=== PATIENT | female | born 1975 | race Caucasian/White ===

== ENCOUNTER 2016-09-28 02:34 | Inpatient (IN) | payer MEDICAID ==
[~2016-09-28] VITALS: Ht 154.9 cm; Wt 66.3 kg
[~2016-09-28 02:34] MED LIST: ALBUTEROL; LEVAQUIN750 MG PO; PROMETHAZINE12.5 M4 PO
[2016-09-28] MEDS ORDERED: PREDNISONE10 M1 PO (05:34)
[2016-09-28 05:40] LABS: BASOPHIL % 0.8 % (0-2); PLATELET COUNT 267 x10^3mcL (130-400); RED CELL DISTRIBUTION WIDTH 14.3 % (11.5-14.5)
[2016-09-28 05:46] LABS: CALCIUM 8.4 mg/dL (8.5-10.1); CARBON DIOXIDE 29.9 mmol/L (21-32); CHLORIDE SERUM 103 mmol/L (98-107); CREATININE SERUM 0.6 mg/dL (0.6-1.0); GFR1 > 60 mL/min; GLUCOSE SERUM 99 mg/dL (74-106); SODIUM SERUM 139 mmol/L (136-145)
[2016-09-28 05:51] LABS: ALBUMIN 3.6 g/dL (3.4-5.0); ALKALINE PHOSPHATASE 56 U/L (46-116); ALT/SGPT 19 U/L (14-59); AST/SGOT 11 U/L (15-37); BILIRUBIN TOTAL 0.3 mg/dL (0.20-1.00); TOTAL PROTEIN, SERUM 6.9 g/dL (6.4-8.2)
[2016-09-28 06:09] VITALS: BP 122/77
[2016-09-28 06:28] LABS: T3 TOTAL 1.02 ng/mL
[2016-09-28 06:34] LABS: MAGNESIUM 1.9 mg/dL (1.8-2.4); PHOSPHOROUS 3.3 mg/dL (2.5-4.9)
[2016-09-28 06:42] LABS: CHOLESTEROL/HDL RATIO 2.6
[2016-09-28 06:43] LABS: FREE T4 1.03 ng/dL (0.76-1.46); FREE THYROXINE INDEX 2.3 ug/dL (1.4-4.5); T4(THYROXINE) 6.6 ug/dL (4.7-13.3)
[2016-09-28 07:45] VITALS: BP 117/75
[2016-09-28 14:00] VITALS: BP 96/47
[2016-09-28 17:18] LABS: microscopic required? YES; urine erythrocyte NEGATIVE (NEGATIVE)
[2016-09-28 17:32] LABS: AMPHETAMINE QUAL UR NONE DETECTED (NEG <=1000)
[2016-09-28 18:17] VITALS: BP 116/56
[2016-09-28 21:57] VITALS: BP 125/61
[2016-09-29 05:43] VITALS: BP 92/55
[2016-09-29 06:41] LABS: BASOPHIL % 0.1 % (0-2); PLATELET COUNT 272 x10^3mcL (130-400)
[2016-09-29 06:54] LABS: CALCIUM 8.3 mg/dL (8.5-10.1); CARBON DIOXIDE 27.5 mmol/L (21-32); CHLORIDE SERUM 104 mmol/L (98-107); CREATININE SERUM 0.4 mg/dL (0.6-1.0); GFR1 > 60 mL/min; GLUCOSE SERUM 107 mg/dL (74-106); MAGNESIUM 2.1 mg/dL (1.8-2.4); PHOSPHOROUS 3.6 mg/dL (2.5-4.9); POTASSIUM SERUM 3.9 mmol/L (3.5-5.1); SODIUM SERUM 140 mmol/L (136-145)
[2016-09-29 06:56] LABS: RED CELL DISTRIBUTION WIDTH 14.6 % (11.5-14.5)
[2016-09-29 09:15] VITALS: BP 98/44
[2016-09-29 12:30] VITALS: BP 98/51
[2016-09-29 17:02] VITALS: BP 101/54
[2016-09-29 21:51] VITALS: BP 96/51
[2016-09-30 05:53] VITALS: BP 98/53
[2016-09-30 06:31] LABS: BASOPHIL % 0.1 % (0-2); PLATELET COUNT 246 x10^3mcL (130-400)
[2016-09-30 06:41] LABS: CALCIUM 8.2 mg/dL (8.5-10.1); CARBON DIOXIDE 27.2 mmol/L (21-32); CHLORIDE SERUM 105 mmol/L (98-107); CREATININE SERUM 0.5 mg/dL (0.6-1.0); GFR1 > 60 mL/min; GLUCOSE SERUM 130 mg/dL (74-106); POTASSIUM SERUM 3.7 mmol/L (3.5-5.1); SODIUM SERUM 140 mmol/L (136-145)
[2016-09-30 07:32] LABS: RED CELL DISTRIBUTION WIDTH 14.6 % (11.5-14.5)
[2016-09-30 09:30] VITALS: BP 93/54
[2016-09-30] MEDS ORDERED: SINGULAIR10 MG PO (10:59)
[2016-09-30] MEDS ORDERED: MEDDP PO (11:01)
[2016-09-30] MEDS ORDERED: LAC PO (11:02)
[2016-09-30] MEDS ORDERED: LEVAQUIN750 MG PO (11:02)
[2016-09-30 11:38] VITALS: BP 106/58; BP 93/54
[2016-09-30 13:00] VITALS: BP 106/58
== END 2016-09-30 13:29 | disposition home or self-care (01) | DRG 141 ==
LOC: ED 02:34 → DU 05:31 → MU 05:31 → DU 07:46 → MU 17:20
PROVIDERS: Emergency Medicine; ADMIT Family Medicine
DX: J45.901 Unspecified asthma with (acute) exacerbation (principal); N17.0 Acute kidney failure with tubular necrosis; N39.0 Urinary tract infection, site not specified
CPT/HCPCS: 36600; 80307; 83880; 84439; 94150; J1956; J2920; J2930; J3475; J7030; J7512; J7613; J7620; J7626; J7644; Q0092; Q9967

== ENCOUNTER 2016-11-23 23:56 | Emergency (ER) | payer MEDICAID ==
[~2016-11-23 23:56] MED LIST changes: +LAC PO; +MEDDP PO; +PREDNISONE10 M1 PO; +SINGULAIR10 MG PO
[2016-11-24 00:32] LABS: BASOPHIL % 0.8 % (0-2); PLATELET COUNT 269 x10^3mcL (130-400); RED CELL DISTRIBUTION WIDTH 13.9 % (11.5-14.5)
[2016-11-24 00:45] LABS: CALCIUM 8.5 mg/dL (8.5-10.1); CHLORIDE SERUM 102 mmol/L (98-107); CREATININE SERUM 0.6 mg/dL (0.6-1.0); GFR1 > 60 mL/min; GLUCOSE SERUM 90 mg/dL (74-106); POTASSIUM SERUM 3.7 mmol/L (3.5-5.1); SODIUM SERUM 136 mmol/L (136-145)
[2016-11-24 00:50] LABS: ALBUMIN 3.8 g/dL (3.4-5.0); ALKALINE PHOSPHATASE 72 U/L (46-116); ALT/SGPT 17 U/L (14-59); AST/SGOT 12 U/L (15-37); BILIRUBIN TOTAL 0.3 mg/dL (0.20-1.00); CHOLESTEROL 155 mg/dL (<200); HDL CHOLESTEROL 65 mg/dL (40-60); TOTAL PROTEIN, SERUM 7.3 g/dL (6.4-8.2)
[2016-11-24 01:57] VITALS: BP 110/73
== END 2016-11-24 01:57 | disposition home or self-care (01) ==
LOC: ED 23:56
PROVIDERS: Emergency Medicine
DX: J45.901 Unspecified asthma with (acute) exacerbation (principal); Z88.5 Allergy status to narcotic agent
CPT/HCPCS: 83880; J2930; J7030; J7613; Q0092

== ENCOUNTER 2017-01-02 22:51 | Inpatient (IN) | payer MEDICAID ==
[~2017-01-02] VITALS: Ht 154.9 cm; Wt 66.5 kg
[2017-01-03] VITALS (7 sets, daily range): BP systolic 92–112; BP diastolic 53–75
[2017-01-03] MEDS ORDERED: ALBUTEROL1.25 MG/3 NEB (01:43)
[2017-01-03] MEDS ORDERED: VENTOLIN H0.09 MG/A1 INH (01:43)
[2017-01-03 02:20] LABS: PHOSPHOROUS 2.1 mg/dL (2.5-4.9)
[2017-01-03 02:27] LABS: BASOPHIL % 0.5 % (0-2); PLATELET COUNT 265 x10^3mcL (130-400); RED CELL DISTRIBUTION WIDTH 13.6 % (11.5-14.5)
[2017-01-03 02:28] LABS: T3 TOTAL 1.31 ng/mL
[2017-01-03 02:33] LABS: FREE T4 1.1 ng/dL (0.76-1.46); FREE THYROXINE INDEX 2.8 ug/dL (1.4-4.5)
[2017-01-03 02:38] LABS: ALBUMIN 3.5 g/dL (3.4-5.0); ALKALINE PHOSPHATASE 81 U/L (46-116); ALT/SGPT 11 U/L (14-59); AST/SGOT 13 U/L (15-37); BILIRUBIN TOTAL 0.11 mg/dL (0.20-1.00); CALCIUM 8.1 mg/dL (8.5-10.1); CARBON DIOXIDE 26.8 mmol/L (21-32); CHLORIDE SERUM 109 mmol/L (98-107); CREATININE SERUM 0.6 mg/dL (0.6-1.0); GFR1 > 60 mL/min; GLUCOSE SERUM 133 mg/dL (74-106); POTASSIUM SERUM 3.8 mmol/L (3.5-5.1); SODIUM SERUM 145 mmol/L (136-145); TOTAL PROTEIN, SERUM 6.7 g/dL (6.4-8.2)
[2017-01-03 03:42] LABS: CHOLESTEROL/HDL RATIO 2.5; MAGNESIUM 1.7 mg/dL (1.8-2.4)
[2017-01-03 04:04] LABS: microscopic required? YES; urine erythrocyte 2+ (NEGATIVE)
[2017-01-03 04:20] LABS: AMPHETAMINE QUAL UR NONE DETECTED (NEG <=1000)
[2017-01-04 06:03] VITALS: BP 95/55
[2017-01-04 06:15] LABS: CALCIUM 8.1 mg/dL (8.5-10.1); CARBON DIOXIDE 24.7 mmol/L (21-32); CHLORIDE SERUM 110 mmol/L (98-107); CREATININE SERUM 0.5 mg/dL (0.6-1.0); GFR1 > 60 mL/min; GLUCOSE SERUM 144 mg/dL (74-106); PHOSPHOROUS 3.3 mg/dL (2.5-4.9); POTASSIUM SERUM 4.2 mmol/L (3.5-5.1); SODIUM SERUM 144 mmol/L (136-145)
[2017-01-04 08:43] LABS: BASOPHIL % 0.3 % (0-2); PLATELET COUNT 270 x10^3mcL (130-400); RED CELL DISTRIBUTION WIDTH 14.2 % (11.5-14.5)
[2017-01-04 09:45] VITALS: BP 132/72
[2017-01-04 16:55] VITALS: BP 106/63
[2017-01-04 22:25] VITALS: BP 97/56
[2017-01-05 07:06] VITALS: BP 94/46
[2017-01-05 08:01] LABS: BASOPHIL % 0.2 % (0-2); PLATELET COUNT 250 x10^3mcL (130-400)
[2017-01-05 08:16] LABS: CALCIUM 8.1 mg/dL (8.5-10.1); CARBON DIOXIDE 28.4 mmol/L (21-32); CHLORIDE SERUM 106 mmol/L (98-107); CREATININE SERUM 0.5 mg/dL (0.6-1.0); GFR1 > 60 mL/min; GLUCOSE SERUM 132 mg/dL (74-106); POTASSIUM SERUM 4.1 mmol/L (3.5-5.1); SODIUM SERUM 140 mmol/L (136-145)
[2017-01-05 10:16] VITALS: BP 108/64
[2017-01-05 17:52] VITALS: BP 109/65
[2017-01-05 22:17] VITALS: BP 92/46
[2017-01-06 05:33] VITALS: BP 102/65
[2017-01-06 06:06] LABS: PLATELET COUNT 270 x10^3mcL (130-400); RED CELL DISTRIBUTION WIDTH 14.4 % (11.5-14.5)
[2017-01-06 06:21] LABS: BASOPHIL % 0 % (0-2)
[2017-01-06 06:30] LABS: CALCIUM 8.4 mg/dL (8.5-10.1); CARBON DIOXIDE 26.6 mmol/L (21-32); CHLORIDE SERUM 103 mmol/L (98-107); CREATININE SERUM 0.5 mg/dL (0.6-1.0); GFR1 > 60 mL/min; GLUCOSE SERUM 137 mg/dL (74-106); POTASSIUM SERUM 3.8 mmol/L (3.5-5.1); SODIUM SERUM 138 mmol/L (136-145)
[2017-01-06 10:03] VITALS: BP 96/55
[2017-01-06 17:53] VITALS: BP 101/55
[2017-01-06 19:20] VITALS: BP 101/52
[2017-01-07 05:36] VITALS: BP 110/75; BP 114/75
[2017-01-07 05:55] LABS: PLATELET COUNT 283 x10^3mcL (130-400); RED CELL DISTRIBUTION WIDTH 14.2 % (11.5-14.5)
[2017-01-07 06:10] LABS: CALCIUM 8.3 mg/dL (8.5-10.1); CARBON DIOXIDE 26.3 mmol/L (21-32); CHLORIDE SERUM 108 mmol/L (98-107); CREATININE SERUM 0.5 mg/dL (0.6-1.0); GFR1 > 60 mL/min; GLUCOSE SERUM 137 mg/dL (74-106); POTASSIUM SERUM 4.1 mmol/L (3.5-5.1); SODIUM SERUM 142 mmol/L (136-145)
[2017-01-07 06:40] LABS: BASOPHIL % 0 % (0-2)
[2017-01-07 10:28] VITALS: BP 107/58
[2017-01-07] MEDS ORDERED: MONTELUKAST SOD10 M1 PO (12:14)
[2017-01-07] MEDS ORDERED: MEDDP PO (12:15)
[2017-01-07] MEDS ORDERED: LAC PO (12:15)
[2017-01-07] MEDS ORDERED: LEVAQUIN500 M1 PO (12:15)
[2017-01-07 12:55] VITALS: BP 107/58
== END 2017-01-07 13:45 | disposition home or self-care (01) | DRG 141 ==
LOC: ED 22:51 → MU 01-03 01:26 → DU 01-03 01:26 → MU 01-03 08:06
PROVIDERS: Family Medicine; ADMIT Family Medicine
DX: J45.901 Unspecified asthma with (acute) exacerbation (principal); N17.0 Acute kidney failure with tubular necrosis; J96.01 Acute respiratory failure with hypoxia; E83.42 Hypomagnesemia; E83.39 Other disorders of phosphorus metabolism; E83.51 Hypocalcemia; D72.829 Elevated white blood cell count, unspecified; F41.9 Anxiety disorder, unspecified; Z68.27 Body mass index [BMI] 27.0-27.9, adult
CPT/HCPCS: 36600; 83880; 84439; J1885; J1956; J2405; J2920; J2930; J7030; J7613; J7620; J7626; J7644; Q0092

== ENCOUNTER 2017-11-18 16:33 | Emergency (ER) | payer MEDICAID ==
[~2017-11-18] VITALS: Ht 154.9 cm; Wt 65.3 kg
[~2017-11-18 16:33] MED LIST changes: +ALBUTEROL1.25 MG/3 NEB; +LEVAQUIN500 M1 PO; +MONTELUKAST SOD10 M1 PO; +VENTOLIN H0.09 MG/A1 INH
[2017-11-18 16:43] VITALS: Ht 154.9 cm; Wt 65.3 kg
[2017-11-18 17:40] LABS: AMPHETAMINE QUAL UR NONE DETECTED (NEG <=1000)
[2017-11-18 18:11] LABS: BASOPHIL % 0.6 % (0-2); PLATELET COUNT 273 x10^3mcL (130-400)
[2017-11-18 18:20] LABS: CALCIUM 8.5 mg/dL (8.5-10.1); CARBON DIOXIDE 25.7 mmol/L (21-32); CHLORIDE SERUM 106 mmol/L (98-107); CREATININE SERUM 0.5 mg/dL (0.6-1.0); GFR1 > 60 mL/min; GLUCOSE SERUM 104 mg/dL (74-106); POTASSIUM SERUM 3.3 mmol/L (3.5-5.1); SODIUM SERUM 137 mmol/L (136-145)
[2017-11-18 18:24] LABS: ALBUMIN 3.8 g/dL (3.4-5.0); ALKALINE PHOSPHATASE 73 U/L (46-116); ALT/SGPT 16 U/L (14-59); AST/SGOT 15 U/L (15-37); BILIRUBIN TOTAL 0.43 mg/dL (0.20-1.00); TOTAL PROTEIN, SERUM 7.1 g/dL (6.4-8.2)
[2017-11-18 18:34] LABS: CK-MB 1.5 ng/mL (0-3.6)
[2017-11-18 19:57] VITALS: BP 107/73
== END 2017-11-18 19:58 | disposition home or self-care (01) ==
LOC: ED 16:33
PROVIDERS: Emergency Medicine
DX: J45.901 Unspecified asthma with (acute) exacerbation (principal); Z88.5 Allergy status to narcotic agent
CPT/HCPCS: 36600; 83880; J2930; J7613

== ENCOUNTER 2018-01-16 15:08 | Emergency (ER) | payer MEDICAID ==
[~2018-01-16] VITALS: Ht 157.5 cm; Wt 66.5 kg
[2018-01-16 15:19] VITALS: Ht 157.5 cm; Wt 66.5 kg
[2018-01-16 17:41] VITALS: BP 139/76
== END 2018-01-16 17:41 | disposition home or self-care (01) ==
LOC: ED 15:08
DX: J45.901 Unspecified asthma with (acute) exacerbation (principal); Z88.5 Allergy status to narcotic agent
CPT/HCPCS: J0171; J7512; J7613; J7644

== ENCOUNTER 2018-02-04 22:48 | Inpatient (IN) | payer MEDICAID ==
[~2018-02-04] VITALS: Ht 154.9 cm; Wt 70.0 kg
[2018-02-04 22:54] VITALS: Ht 154.9 cm; Wt 70.0 kg
[2018-02-05 03:42] LABS: CALCIUM 7.5 mg/dL (8.5-10.1); CARBON DIOXIDE 27.1 mmol/L (21-32); CHLORIDE SERUM 104 mmol/L (98-107); CREATININE SERUM 0.6 mg/dL (0.6-1.0); GFR1 > 60 mL/min; GLUCOSE SERUM 132 mg/dL (74-106); POTASSIUM SERUM 3.9 mmol/L (3.5-5.1); SODIUM SERUM 139 mmol/L (136-145)
[2018-02-05 03:45] LABS: ALBUMIN 3.5 g/dL (3.4-5.0); ALKALINE PHOSPHATASE 73 U/L (46-116); ALT/SGPT 17 U/L (14-59); AST/SGOT 11 U/L (15-37); BILIRUBIN TOTAL 0.2 mg/dL (0.20-1.00); TOTAL PROTEIN, SERUM 6.8 g/dL (6.4-8.2)
[2018-02-05 03:53] LABS: T3 TOTAL 1.13 ng/mL
[2018-02-05 04:04] LABS: PHOSPHOROUS 1.1 mg/dL (2.5-4.9)
[2018-02-05 04:12] LABS: FREE T4 0.95 ng/dL (0.76-1.46); FREE THYROXINE INDEX 2.3 ug/dL (1.4-4.5); T4(THYROXINE) 7.1 ug/dL (4.7-13.3)
[2018-02-05 04:18] LABS: BASOPHIL % 0.4 % (0-2); PLATELET COUNT 267 x10^3mcL (130-400)
[2018-02-05 04:22] VITALS: BP 109/61
[2018-02-05 04:22] LABS: RED CELL DISTRIBUTION WIDTH 14.8 % (11.5-14.5)
[2018-02-05 07:07] LABS: microscopic required? NO
[2018-02-05 07:47] LABS: urine erythrocyte NEGATIVE (NEGATIVE)
[2018-02-05 08:07] LABS: AMPHETAMINE QUAL UR NONE DETECTED (See below)
[2018-02-05 09:56] VITALS: BP 106/65
[2018-02-05 13:23] VITALS: BP 100/60
[2018-02-05 14:24] VITALS: BP 100/60
[2018-02-05 17:58] VITALS: BP 100/53
[2018-02-05 20:50] VITALS: BP 93/54
[2018-02-06 05:26] VITALS: BP 94/46
[2018-02-06 06:08] LABS: PLATELET COUNT 271 x10^3mcL (130-400)
[2018-02-06 06:14] LABS: CALCIUM 8.3 mg/dL (8.5-10.1); CARBON DIOXIDE 26.7 mmol/L (21-32); CHLORIDE SERUM 107 mmol/L (98-107); CREATININE SERUM 0.5 mg/dL (0.6-1.0); GFR1 > 60 mL/min; GLUCOSE SERUM 138 mg/dL (74-106); POTASSIUM SERUM 3.8 mmol/L (3.5-5.1); SODIUM SERUM 139 mmol/L (136-145)
[2018-02-06 06:25] LABS: BASOPHIL % 0 % (0-2); RED CELL DISTRIBUTION WIDTH 14.7 % (11.5-14.5)
[2018-02-06 06:43] VITALS: BP 95/49
[2018-02-06 21:49] VITALS: BP 91/42
[2018-02-07 05:17] VITALS: BP 101/61
[2018-02-07 06:36] LABS: PLATELET COUNT 266 x10^3mcL (130-400)
[2018-02-07 06:48] LABS: BASOPHIL % 0 % (0-2); RED CELL DISTRIBUTION WIDTH 14.7 % (11.5-14.5)
[2018-02-07 07:07] LABS: CALCIUM 7.6 mg/dL (8.5-10.1); CARBON DIOXIDE 26.6 mmol/L (21-32); CHLORIDE SERUM 104 mmol/L (98-107); CREATININE SERUM 0.5 mg/dL (0.6-1.0); GFR1 > 60 mL/min; GLUCOSE SERUM 137 mg/dL (74-106); SODIUM SERUM 139 mmol/L (136-145)
[2018-02-07 09:11] VITALS: BP 102/54
[2018-02-07] MEDS ORDERED: PREDNISONE50 MG PO (09:53)
[2018-02-07] MEDS ORDERED: FLOVENT HF0.11 MG/A1 INH (10:03)
[2018-02-07] MEDS ORDERED: VENTOLIN H0.09 MG/A1 INH (10:11)
[2018-02-07] MEDS ORDERED: ALBUTEROL1.25 MG/3 NEB (10:11)
[2018-02-07 10:52] VITALS: BP 102/54
[2018-02-07 12:27] VITALS: BP 102/56
== END 2018-02-07 13:20 | disposition home or self-care (01) | DRG 141 ==
LOC: ED 22:48 → DU 02-05 02:49
PROVIDERS: Emergency Medicine; Internal Medicine
DX: J45.901 Unspecified asthma with (acute) exacerbation (principal); N17.0 Acute kidney failure with tubular necrosis; J80 Acute respiratory distress syndrome; E83.39 Other disorders of phosphorus metabolism; Z88.5 Allergy status to narcotic agent; Z68.29 Body mass index [BMI] 29.0-29.9, adult
CPT/HCPCS: 84439; J1956; J2920; J2930; J7030; J7620; J7626

== ENCOUNTER 2018-05-17 23:56 | Emergency (ER) | payer MEDICAID ==
[~2018-05-17] VITALS: Ht 162.6 cm; Wt 70.8 kg
[~2018-05-17 23:56] MED LIST changes: +FLOVENT HF0.11 MG/A1 INH; +PREDNISONE50 MG PO
[2018-05-18] VITALS: Ht 162.6 cm; Wt 70.8 kg
[2018-05-18 03:07] VITALS: BP 116/70
== END 2018-05-18 03:07 | disposition home or self-care (01) ==
LOC: ED 23:56
DX: J40 Bronchitis, not specified as acute or chronic (principal); Z88.5 Allergy status to narcotic agent
CPT/HCPCS: J2930; J7512; J7613; J7644; Q0092

== ENCOUNTER 2018-05-30 18:36 | Inpatient (IN) | payer MEDICAID ==
[~2018-05-30] VITALS: Ht 154.9 cm; Wt 73.1 kg
[2018-05-30 18:40] VITALS: Ht 154.9 cm; Wt 73.1 kg
[2018-05-30 19:34] LABS: BASOPHIL % 0.5 % (0-2); PLATELET COUNT 269 x10^3mcL (130-400); RED CELL DISTRIBUTION WIDTH 14.3 % (11.5-14.5)
[2018-05-30 19:42] LABS: CARBON DIOXIDE 30.1 mmol/L (21-32); CHLORIDE SERUM 109 mmol/L (98-107); CREATININE SERUM 0.6 mg/dL (0.6-1.0); GFR1 > 60 mL/min; GLUCOSE SERUM 100 mg/dL (74-106); POTASSIUM SERUM 3.4 mmol/L (3.5-5.1); SODIUM SERUM 146 mmol/L (136-145)
[2018-05-30 19:47] LABS: ALBUMIN 3.7 g/dL (3.4-5.0); ALKALINE PHOSPHATASE 79 U/L (46-116); ALT/SGPT 23 U/L (14-59); AST/SGOT 19 U/L (15-37); BILIRUBIN TOTAL 0.29 mg/dL (0.20-1.00); TOTAL PROTEIN, SERUM 7.2 g/dL (6.4-8.2)
[2018-05-30] MEDS ORDERED: ALBUTEROL0.63 MG/3 IH (21:54)
[2018-05-30] MEDS ORDERED: PROAIR HFA8.5 GM IH (21:55)
[2018-05-30] MEDS ORDERED: VENTOLIN H0.09 MG/A1 IH (21:56)
[2018-05-30 23:12] VITALS: BP 103/70; BP 96/63
[2018-05-31 02:51] LABS: MAGNESIUM 2.3 mg/dL (1.8-2.4)
[2018-05-31 02:54] LABS: CHOLESTEROL/HDL RATIO 2.5; T3 TOTAL 1.59 ng/mL
[2018-05-31 03:05] LABS: FREE THYROXINE INDEX 2.4 ug/dL (1.4-4.5); T4(THYROXINE) 7.2 ug/dL (4.7-13.3)
[2018-05-31 05:37] VITALS: BP 98/63
[2018-05-31 06:03] LABS: BASOPHIL % 0.2 % (0-2); PLATELET COUNT 262 x10^3mcL (130-400); RED CELL DISTRIBUTION WIDTH 14.2 % (11.5-14.5)
[2018-05-31 07:04] LABS: CALCIUM 8.4 mg/dL (8.5-10.1); CARBON DIOXIDE 24.7 mmol/L (21-32); CHLORIDE SERUM 105 mmol/L (98-107); CREATININE SERUM 0.5 mg/dL (0.6-1.0); GFR1 > 60 mL/min; GLUCOSE SERUM 146 mg/dL (74-106); POTASSIUM SERUM 4.1 mmol/L (3.5-5.1); SODIUM SERUM 137 mmol/L (136-145)
[2018-05-31 08:45] VITALS: BP 106/73
[2018-05-31 17:21] VITALS: BP 102/62
[2018-05-31 18:00] LABS: UA SPECIFIC GRAVITY 1.015 (1.005-1.035); microscopic required? YES; urine erythrocyte 3+ (NEGATIVE)
[2018-05-31 18:10] LABS: AMPHETAMINE QUAL UR NONE DETECTED (See below)
[2018-05-31 21:04] VITALS: BP 105/64
[2018-06-01 05:45] VITALS: BP 98/54
[2018-06-01 06:16] LABS: CALCIUM 8.3 mg/dL (8.5-10.1); CARBON DIOXIDE 27.2 mmol/L (21-32); CHLORIDE SERUM 108 mmol/L (98-107); CREATININE SERUM 0.5 mg/dL (0.6-1.0); GFR1 > 60 mL/min; GLUCOSE SERUM 165 mg/dL (74-106); MAGNESIUM 2.3 mg/dL (1.8-2.4); PHOSPHOROUS 2.6 mg/dL (2.5-4.9); POTASSIUM SERUM 4.3 mmol/L (3.5-5.1); SODIUM SERUM 142 mmol/L (136-145)
[2018-06-01 06:30] LABS: BASOPHIL % 0.1 % (0-2)
[2018-06-01 06:43] LABS: PLATELET COUNT 283 x10^3mcL (130-400); RED CELL DISTRIBUTION WIDTH 13.4 % (11.5-14.5)
[2018-06-01 09:55] VITALS: BP 101/61
[2018-06-01 18:32] VITALS: BP 114/71
[2018-06-01 20:56] VITALS: BP 97/60
[2018-06-02 05:31] VITALS: BP 99/57
[2018-06-02 06:16] LABS: CALCIUM 8.5 mg/dL (8.5-10.1); CARBON DIOXIDE 28.8 mmol/L (21-32); CHLORIDE SERUM 103 mmol/L (98-107); CREATININE SERUM 0.6 mg/dL (0.6-1.0); GFR1 > 60 mL/min; GLUCOSE SERUM 138 mg/dL (74-106); POTASSIUM SERUM 4.3 mmol/L (3.5-5.1); SODIUM SERUM 139 mmol/L (136-145)
[2018-06-02 06:52] LABS: PLATELET COUNT 260 x10^3mcL (130-400); RED CELL DISTRIBUTION WIDTH 14.7 % (11.5-14.5)
[2018-06-02 08:38] VITALS: BP 101/54
[2018-06-02 14:02] LABS: BAND NEUTROPHIL 2 % (0-10); BASOPHIL 2 % (0-2); MONOCYTE 4 % (0-7); PLATELET MORPHOLOGY PLATELETS NORMAL; SEGMENTED NEUTROPHILS 91 % (37-75); rbc morphology (normal/abnorm) NORMAL (NORMAL)
[2018-06-02 17:17] VITALS: BP 108/58
[2018-06-02 20:29] VITALS: BP 96/57
[2018-06-03 05:05] VITALS: BP 95/50
[2018-06-03 06:41] LABS: CALCIUM 8.6 mg/dL (8.5-10.1); CARBON DIOXIDE 28.3 mmol/L (21-32); CHLORIDE SERUM 102 mmol/L (98-107); CREATININE SERUM 0.6 mg/dL (0.6-1.0); GFR1 > 60 mL/min; GLUCOSE SERUM 140 mg/dL (74-106); POTASSIUM SERUM 4.1 mmol/L (3.5-5.1); SODIUM SERUM 137 mmol/L (136-145)
[2018-06-03 07:06] LABS: PLATELET COUNT 257 x10^3mcL (130-400)
[2018-06-03 07:07] LABS: BASOPHIL % 0 % (0-2); RED CELL DISTRIBUTION WIDTH 14.8 % (11.5-14.5)
[2018-06-03 09:31] VITALS: BP 98/56
[2018-06-03 17:08] VITALS: BP 113/63
[2018-06-03 20:44] VITALS: BP 111/72
[2018-06-04 05:22] VITALS: BP 102/60
[2018-06-04 06:52] LABS: CALCIUM 8.4 mg/dL (8.5-10.1); CARBON DIOXIDE 29.7 mmol/L (21-32); CHLORIDE SERUM 105 mmol/L (98-107); CREATININE SERUM 0.5 mg/dL (0.6-1.0); GFR1 > 60 mL/min; GLUCOSE SERUM 112 mg/dL (74-106); POTASSIUM SERUM 4.2 mmol/L (3.5-5.1); SODIUM SERUM 141 mmol/L (136-145)
[2018-06-04 07:02] LABS: BASOPHIL % 0.2 % (0-2); PLATELET COUNT 271 x10^3mcL (130-400); RED CELL DISTRIBUTION WIDTH 14.5 % (11.5-14.5)
[2018-06-04 07:49] VITALS: BP 101/61
[2018-06-04 11:54] VITALS: BP 99/65
[2018-06-04 16:56] VITALS: BP 100/60
[2018-06-04 21:09] VITALS: BP 103/68
[2018-06-05 05:18] VITALS: BP 109/70
[2018-06-05 07:53] LABS: BASOPHIL % 0.1 % (0-2); PLATELET COUNT 270 x10^3mcL (130-400)
[2018-06-05 07:56] LABS: RED CELL DISTRIBUTION WIDTH 14.8 % (11.5-14.5)
[2018-06-05 08:11] LABS: CALCIUM 8.5 mg/dL (8.5-10.1); CARBON DIOXIDE 30.8 mmol/L (21-32); CHLORIDE SERUM 102 mmol/L (98-107); CREATININE SERUM 0.6 mg/dL (0.6-1.0); GFR1 > 60 mL/min; GLUCOSE SERUM 104 mg/dL (74-106); POTASSIUM SERUM 4.1 mmol/L (3.5-5.1); SODIUM SERUM 137 mmol/L (136-145)
[2018-06-05 09:11] VITALS: BP 106/70
[2018-06-05 09:52] LABS: BAND NEUTROPHIL 1 % (0-10); BASOPHIL 0 % (0-2); MONOCYTE 10 % (0-7); SEGMENTED NEUTROPHILS 74 % (37-75)
[2018-06-05 09:53] LABS: PLATELET MORPHOLOGY PLATELETS NORMAL
[2018-06-05 09:56] LABS: rbc morphology (normal/abnorm) ABNORMAL (NORMAL)
[2018-06-05] MEDS ORDERED: PREDNISONE10 MG PO ×2 (12:15→12:16)
[2018-06-05] MEDS ORDERED: LEVOFLOXACIN750 M1 PO (12:15)
[2018-06-05] MEDS ORDERED: PREDNISONE20 MG PO (12:15)
[2018-06-05 12:57] VITALS: BP 106/70
== END 2018-06-05 13:50 | disposition home or self-care (01) | DRG 139 ==
LOC: ED 18:36 → MU 21:56
PROVIDERS: Emergency Medicine; Internal Medicine
DX: J18.1 Lobar pneumonia, unspecified organism (principal); N17.0 Acute kidney failure with tubular necrosis; J96.01 Acute respiratory failure with hypoxia; J45.901 Unspecified asthma with (acute) exacerbation; E87.6 Hypokalemia; R31.9 Hematuria, unspecified; D72.829 Elevated white blood cell count, unspecified; E87.0 Hyperosmolality and hypernatremia; Z68.24 Body mass index [BMI] 24.0-24.9, adult; Z79.51 Long term (current) use of inhaled steroids
CPT/HCPCS: 83880; 84439; 90658; 94150; J0456; J1644; J1885; J1956; J2405; J2920; J2930; J7030; J7040; J7613; J7620; J7626; J7633; Q0092; Q0163

== ENCOUNTER 2018-08-03 17:55 | Emergency (ER) | payer MEDICAID ==
[~2018-08-03] VITALS: Ht 152.4 cm; Wt 70.3 kg
[~2018-08-03 17:55] MED LIST changes: +ALBUTEROL0.63 MG/3 IH; +LEVOFLOXACIN750 M1 PO; +PREDNISONE10 MG PO; +PREDNISONE20 MG PO; +PROAIR HFA8.5 GM IH; +VENTOLIN H0.09 MG/A1 IH
[2018-08-03 18:01] VITALS: Ht 152.4 cm; Wt 70.3 kg
[2018-08-03 20:34] VITALS: BP 110/81
== END 2018-08-03 20:34 | disposition home or self-care (01) ==
LOC: ED 17:55
DX: J45.909 Unspecified asthma, uncomplicated (principal); Z88.5 Allergy status to narcotic agent
CPT/HCPCS: 87804; J2930; J7030; J7613; Q0092